=== PATIENT | male | born 1950 | race Two or more races ===

== ENCOUNTER → 2024-08-19 | Outpatient (CLI) | payer MEDICAID ==
[2024-08-19 09:17] LABS: Urine Bacteria None Seen /hpf (None Seen)
[2024-08-19 10:31] LABS: Basophils # (auto) 0 10 ^3/uL (0-0.2); Basophils % (auto) 1.1 % (0.0-2.0); Eosinophils # (auto) 0.3 10 ^3/uL (0-0.8); Eosinophils % (auto) 11.1 % (0.0-7.0); Hematocrit 44.2 % (41.0-53.0); Hemoglobin 14.6 g/dL (13.5-17.5); Lymphocytes % (auto) 36.1 % (10.0-50.0); Mean Corpuscular Hemoglobin 32.4 pg (28.0-32.0); Mean Corpuscular Hgb Conc. 33.1 g/dL (32.0-36.0); Mean Corpuscular Volume 97.9 fL (80.0-100.0); Monocytes # (auto) 0.3 10 ^3/uL (0-1.3); Monocytes % (auto) 9.4 % (0.0-12.0); Neutrophils # (auto) 1.2 10 ^3/uL (1.6-8.6); Neutrophils % (auto) 42.3 % (37.0-80.0); Nucleated Red Blood Cells % 0.4 %; Platelet Count (auto) 238 10^3/uL (140-450); Red Blood Cells 4.51 10^6/uL (4.5-5.90); Red Cell Distribution Width 12.8 % (11.8-14.3); White Blood Cell 2.8 10^3/uL (4.4-10.8)
[2024-08-19 11:04] LABS: Urine Blood Negative /uL (Negative); Urine Clarity Clear (Clear); Urine Color Dark-Yellow (Yellow); Urine Mucus FEW (None Seen); Urine Protein, UAD TRACE (Negative); Urine Squamous Epithelial Cell None Seen /hpf (<5); Urine Urobilinogen Normal (Negative); Urine WBC 1 /HPF (0-3)
[2024-08-19 11:09] LABS: Alkaline Phosphatase 83 U/L (46-116); Anion Gap 8 (5-15); Aspartate Aminotransferase 15 U/L (13-40); BUN/Creatinine Ratio 15.4 (10.0-20.0); Blood Urea Nitrogen 19 mg/dL (9-23); Calcium 9.4 mg/dL (8.7-10.4); Carbon Dioxide 28 mmol/L (20-31); Chloride 106 mmol/L (98-107); Glucose 84 mg/dL (74-106); Potassium 4.1 mmol/L (3.5-5.1); Sodium 142 mmol/L (136-145); Triglycerides 34 mg/dL (< 150)
[2024-08-19 11:10] LABS: Bilirubin, Total 0.6 mg/dL (0.2-1.0); Cholesterol 186 mg/dL (< 200); HDL Cholesterol 53 mg/dL (40-59); Total Protein 7.2 g/dL (5.7-8.2)
[2024-08-19 11:12] LABS: Albumin 4.1 g/dL (3.2-4.8)
[2024-08-19 11:14] LABS: LDL Cholesterol 124 mg/dL (< 100)
[2024-08-19 11:24] LABS: Alanine Aminotransferase 15 U/L (7-40)
[2024-08-20 08:06] LABS: PSA Free 0.81 ng/mL; Prostate Specific Antigen 4.4 ng/mL (0.0-4.0)
== END | disposition home or self-care (01) ==
LOC: LAB 09:00
PROVIDERS: ATTEND Licensed Practical Nurse
DX: Z12.11 Encounter for screening for malignant neoplasm of colon (principal); Z13.220 Encounter for screening for lipoid disorders; Z13.6 Encounter for screening for cardiovascular disorders; Z13.29 Encounter for screening for other suspected endocrine disorder; N40.0 Benign prostatic hyperplasia without lower urinary tract symptoms; E55.9 Vitamin D deficiency, unspecified
CPT/HCPCS: 36415; 80053; 80061; 81001; 82274; 82306; 83036; 84153; 84154; 84443; 85025